=== PATIENT | female | born 1995 | race Caucasian/White ===

== ENCOUNTER 2018-03-24 18:43 | Emergency (ER) | payer MEDICAID ==
[~2018-03-24] VITALS: Ht 162.6 cm; Wt 104.5 kg
[~2018-03-24 18:43] MED LIST: ADDERALL10 MG PO; ADDERALL20 MG PO; BACTRIM 400 MG-1 TAB PO; BACTRIM DS 8001 TAB PO; BIRTH CONTROL PILLS; BRINTELLIX5; CELEBREX; CELEXA 20MG20 MG/TAB PO; CLARITIN 1010 MG/TAB PO; CLEOCIN HCL300 MG PO; COLACE 100100 MG/CAP PO; CORTISPORIN EAR10 ML OT; DARVOCET-N-101 UDTAB PO; DESYREL 50MG50 MG PO; FLEXERIL 1010 MG/TAB PO; IBUPROFEN 200200 MG PO; LEXAPRO 10MG10 MG PO; LEXAPRO20 MG PO; LORTAB 5/500 501 TAB PO; MOTRIN 600600 MG/TAB PO; NAPROSYN500 MG PO; NO HOME MEDICATIONS; NUVARING VAG RING VG; PERCOCET 325 MG1 TA2 PO; PREDNISONE10 MG PO; PREDNISONE20 MG PO; PRENATAL1 TA1 PO; RECLIPSEN 0.151 TAB PO; SUDAFED30 MG PO; TRAZODO50 MG PO; XANAX 0.5MG0.5 MG PO; ZYRTEC 10MG10 MG PO; bc
[2018-03-24 18:48] VITALS: BP 127/69; TEMP 98.3
[2018-03-24] MEDS ORDERED: ATIVAN 0.50.5 MG/TAB PO (19:07)
[2018-03-24] MEDS ORDERED: DESYREL 100MG100 MG PO (19:08)
[2018-03-24] MEDS ORDERED: PRISTIQ 50 MG T50 MG PO (19:08)
[2018-03-24] MEDS ORDERED: GLUCOPHAGE500 MG/TAB PO (19:09)
[2018-03-24] MEDS ORDERED: ZOFRAN ODT4 MG PO (19:10)
[2018-03-24] MEDS ORDERED: MIDRIN 325 MG-11 CAP PO (19:11)
[2018-03-24 20:16] LABS: BASO # 0.1 (0.0-0.2); BASO % 0.4 % (0.0-2.0); EOS # 0.2 (0.0-0.7); EOS % 1.4 % (0-4.0); GRAN # 8.6 (1.4-6.5); GRAN % 68.2 % (42.2-75.2); HEMATOCRIT 38.2 % (37.0-47.0); LYMPH # 3.1 (1.2-3.4); LYMPH % 24.4 % (20.0-51.0); MEAN CELL VOLUME 90 fl (80.0-100.0); MEAN CORPUSCULAR HEMOGLOBIN 28 pg (27.0-31.0); MEAN CORPUSCULAR HGB CONC 31 g/dl (33.0-37.0); MEAN PLATELET VOLUME 9.7 fl (7.4-10.4); MONO # 0.7 (0.1-0.6); MONO % 5.3 % (1.7-9.3); PLATELET COUNT 339 K/mm3 (130-400); RED BLOOD COUNT 4.23 M/mm3 (4.10-5.30); REDCELL DISTRIBUTION WIDTH-CV 13.6 % (11.5-14.5)
[2018-03-24 20:33] LABS: ALBUMIN 3.8 gm/dL (3.5-5.0); BILIRUBIN,TOTAL 0.1 mg/dL (0.0-1.0); C-REACTIVE PROTEIN 1.6 mg/dL (0.0-0.9); CALCIUM 8.5 mg/dL (8.4-10.2); CREATININE, serum 0.55 mg/dL (0.52-1.25); POTASSIUM 3.2 mmol/L (3.4-5.0); TOTAL PROTEIN 7.1 gm/dL (6.4-8.2)
[2018-03-24] MEDS ORDERED: REGLAN 10MG10 MG/TAB PO (21:16)
[2018-03-24] MEDS ORDERED: FIORICET 325 MG1 TA1 PO (21:16)
[2018-03-24 21:35] VITALS: PULSE 84
== END 2018-03-24 21:37 | disposition home or self-care (01) ==
LOC: COL.ER 18:43
PROVIDERS: Nurse Practitioner
DX: R51 Headache (principal); F41.9 Anxiety disorder, unspecified; F32.9 Major depressive disorder, single episode, unspecified; F90.9 Attention-deficit hyperactivity disorder, unspecified type; Z87.891 Personal history of nicotine dependence; Z88.0 Allergy status to penicillin
CPT/HCPCS: J1200; J1885; J2765; J7030

== ENCOUNTER 2018-08-05 13:47 | Emergency (ER) | payer MEDICAID | END 2018-08-05 18:38 | disposition home or self-care (01) | LOC: COL.ER 13:47 | DX: M62.830 Muscle spasm of back (principal) ==

== ENCOUNTER 2019-01-15 17:38 | Emergency (ER) | payer OTHER ==
[~2019-01-15] VITALS: Ht 165.1 cm; Wt 107.7 kg
[~2019-01-15 17:38] MED LIST changes: +ATIVAN 0.50.5 MG/TAB PO; +DESYREL 100MG100 MG PO; +FIORICET 325 MG1 TA1 PO; +GLUCOPHAGE500 MG/TAB PO; +MIDRIN 325 MG-11 CAP PO; +PRISTIQ 50 MG T50 MG PO; +REGLAN 10MG10 MG/TAB PO; +ZOFRAN ODT4 MG PO; +ZOLOFT 25MG25 MG PO; +ZOLOFT 50MG50 MG PO; +ZOVIRAX 200MG200 MG PO
[2019-01-15 17:57] VITALS: BP 129/87; TEMP 98.5
[2019-01-15 19:10] LABS: COLLECTION METHOD CLEAN CATCH
[2019-01-15 19:23] LABS: MUCOUS Present /lpf; PH 6 (5-8); URINE APPEARANCE Hazy; URINE BACTERIA None Seen /hpf; URINE BILIRUBIN Negative (NEGATIVE); URINE BLOOD Negative (NEGATIVE); URINE COLOR Yellow; URINE GLUCOSE Negative (NEGATIVE); URINE KETONE Negative (NEGATIVE); URINE LEUKOCYTE ESTERASE 2+ (NEGATIVE); URINE NITRATE Negative (NEGATIVE); URINE PROTEIN(semi-quant) Negative (NEGATIVE); URINE UROBILINOGEN Negative (NEGATIVE)
[2019-01-15] MEDS ORDERED: MACROBID 1100 MG/CAP PO (19:33)
[2019-01-15 19:34] VITALS: PULSE 76
== END 2019-01-15 19:34 | disposition home or self-care (01) ==
LOC: COL.ER 17:38
PROVIDERS: Physician Assistant
DX: O71.89 Other specified obstetric trauma (principal); O23.91 Unspecified genitourinary tract infection in pregnancy, first trimester; Z3A.00 Weeks of gestation of pregnancy not specified; V43.52XA Car driver injured in collision with other type car in traffic accident, initial encounter

== ENCOUNTER 2019-02-03 05:30 | Emergency (ER) | payer OTHER ==
[~2019-02-03] VITALS: Ht 165.1 cm; Wt 104.5 kg
[~2019-02-03 05:30] MED LIST changes: +MACROBID 1100 MG/CAP PO
[2019-02-03 05:34] VITALS: BP 120/58; TEMP 98.5
[2019-02-03 05:59] LABS: BASO % 0.5 % (0.0-2.0); EOS # 0.3 (0.0-0.7); EOS % 3.5 % (0-4.0); GRAN # 5.1 (1.4-6.5); GRAN % 58.2 % (42.2-75.2); HEMATOCRIT 38.8 % (37.0-47.0); HEMOGLOBIN 12.6 g/dl (12.5-16.0); LYMPH # 2.7 (1.2-3.4); LYMPH % 30.8 % (20.0-51.0); MEAN CELL VOLUME 88 fl (80.0-100.0); MEAN CORPUSCULAR HEMOGLOBIN 29 pg (27.0-31.0); MEAN CORPUSCULAR HGB CONC 33 g/dl (33.0-37.0); MEAN PLATELET VOLUME 9.6 fl (7.4-10.4); MONO # 0.6 (0.1-0.6); MONO % 6.9 % (1.7-9.3); PLATELET COUNT 331 K/mm3 (130-400); RED BLOOD COUNT 4.42 M/mm3 (4.10-5.30); REDCELL DISTRIBUTION WIDTH-CV 13.8 % (11.5-14.5)
[2019-02-03 06:10] LABS: BILIRUBIN,TOTAL 0.2 mg/dL (0.0-1.0); CALCIUM 8.9 mg/dL (8.4-10.2); CREATININE, serum 0.53 (0.52-1.25); POTASSIUM 3.7 mmol/L (3.4-5.0); TOTAL PROTEIN 7.1 gm/dL (6.4-8.2)
[2019-02-03 06:54] LABS: COLLECTION METHOD CLEAN CATCH
[2019-02-03 06:59] LABS: MUCOUS Present /lpf; PH 5 (5-8); SQUAMOUS EPITHELIAL 0-2 /hpf; URINE APPEARANCE Hazy; URINE BACTERIA None Seen /hpf; URINE BILIRUBIN Negative (NEGATIVE); URINE BLOOD Negative (NEGATIVE); URINE COLOR Yellow; URINE GLUCOSE Negative (NEGATIVE); URINE KETONE Negative (NEGATIVE); URINE LEUKOCYTE ESTERASE Negative (NEGATIVE); URINE NITRATE Negative (NEGATIVE); URINE PROTEIN(semi-quant) Negative (NEGATIVE); URINE RBC 0-2 /hpf; URINE UROBILINOGEN Negative (NEGATIVE)
[2019-02-03 07:20] VITALS: PULSE 76
== END 2019-02-03 07:20 | disposition home or self-care (01) ==
LOC: COL.ER 05:30
PROVIDERS: Emergency Medicine
DX: O21.1 Hyperemesis gravidarum with metabolic disturbance (principal); Z3A.09 9 weeks gestation of pregnancy; Z79.84 Long term (current) use of oral hypoglycemic drugs
CPT/HCPCS: J1200; J2405; J2765; J7030

== ENCOUNTER 2019-03-09 18:57 | Emergency (ER) | payer MEDICAID ==
[~2019-03-09] VITALS: Ht 165.1 cm; Wt 106.8 kg
[2019-03-09 19:01] VITALS: BP 114/73; TEMP 98.6
[2019-03-09 19:36] LABS: BASO # 0.1 (0.0-0.2); BASO % 0.5 % (0.0-2.0); EOS # 0.1 (0.0-0.7); EOS % 0.7 % (0-4.0); GRAN # 7.9 (1.4-6.5); GRAN % 73.2 % (42.2-75.2); HEMATOCRIT 39.6 % (37.0-47.0); HEMOGLOBIN 13.1 g/dl (12.5-16.0); LYMPH # 2.3 (1.2-3.4); MEAN CELL VOLUME 88 fl (80.0-100.0); MEAN CORPUSCULAR HEMOGLOBIN 29 pg (27.0-31.0); MEAN CORPUSCULAR HGB CONC 33 g/dl (33.0-37.0); MEAN PLATELET VOLUME 10.2 fl (7.4-10.4); MONO # 0.5 (0.1-0.6); MONO % 4.3 % (1.7-9.3); PLATELET COUNT 321 K/mm3 (130-400); RED BLOOD COUNT 4.52 M/mm3 (4.10-5.30); REDCELL DISTRIBUTION WIDTH-CV 13.7 % (11.5-14.5)
[2019-03-09 19:41] LABS: BILIRUBIN,TOTAL 0.1 mg/dL (0.0-1.0); CALCIUM 9.1 mg/dL (8.4-10.2); CREATININE, serum 0.56 (0.52-1.25); POTASSIUM 3.7 mmol/L (3.4-5.0); TOTAL PROTEIN 7.4 gm/dL (6.4-8.2)
[2019-03-09 20:19] LABS: COLLECTION METHOD CLEAN CATCH
[2019-03-09 20:28] LABS: MUCOUS Present /lpf; PH 5 (5-8); URINE APPEARANCE Hazy; URINE BACTERIA None Seen /hpf; URINE BILIRUBIN Negative (NEGATIVE); URINE BLOOD Negative (NEGATIVE); URINE COLOR Yellow; URINE GLUCOSE Negative (NEGATIVE); URINE KETONE 1+ (NEGATIVE); URINE LEUKOCYTE ESTERASE 1+ (NEGATIVE); URINE NITRATE Negative (NEGATIVE); URINE PROTEIN(semi-quant) 1+ (NEGATIVE); URINE UROBILINOGEN Negative (NEGATIVE)
[2019-03-09 21:40] VITALS: PULSE 86
== END 2019-03-09 21:40 | disposition home or self-care (01) ==
LOC: COL.ER 18:57
PROVIDERS: Nurse Practitioner
DX: O21.9 Vomiting of pregnancy, unspecified (principal); O99.341 Other mental disorders complicating pregnancy, first trimester; F41.9 Anxiety disorder, unspecified; F32.9 Major depressive disorder, single episode, unspecified; F90.9 Attention-deficit hyperactivity disorder, unspecified type; Z88.0 Allergy status to penicillin; Z87.891 Personal history of nicotine dependence; Z79.84 Long term (current) use of oral hypoglycemic drugs; Z3A.13 13 weeks gestation of pregnancy
CPT/HCPCS: J2550; J7030

== ENCOUNTER 2019-03-11 12:58 | Outpatient (CLI) | payer MEDICAID ==
[~2019-03-11] VITALS: Ht 165.1 cm; Wt 105.9 kg
[2019-03-11 13:23] VITALS: BP 111/68; PULSE 72; TEMP 98.2
--- NOTE | 2019-03-11 15:15 | NUR ---
Pt discharged per w/c by nurse with mother.
[2019-03-12] MEDS ORDERED: MACROBID 1100 MG/CAP PO (07:29)
== END 2019-03-11 17:04 | disposition home or self-care (01) ==
LOC: EUO 12:58
DX: Z79.899 Other long term (current) drug therapy (principal)
CPT/HCPCS: J2405; J7120

== ENCOUNTER 2019-03-12 05:44 | Emergency (ER) | payer MEDICAID ==
[~2019-03-12] VITALS: Ht 165.1 cm; Wt 104.5 kg
[2019-03-12 05:57] VITALS: TEMP 98.9
[2019-03-12 06:24] LABS: BASO % 0.5 % (0.0-2.0); EOS # 0.1 (0.0-0.7); EOS % 1.4 % (0-4.0); GRAN # 4.5 (1.4-6.5); GRAN % 57.1 % (42.2-75.2); HEMATOCRIT 40.2 % (37.0-47.0); HEMOGLOBIN 13.3 g/dl (12.5-16.0); LYMPH # 2.8 (1.2-3.4); LYMPH % 35.3 % (20.0-51.0); MEAN CELL VOLUME 87 fl (80.0-100.0); MEAN CORPUSCULAR HEMOGLOBIN 29 pg (27.0-31.0); MEAN CORPUSCULAR HGB CONC 33 g/dl (33.0-37.0); MEAN PLATELET VOLUME 9.8 fl (7.4-10.4); MONO # 0.4 (0.1-0.6); MONO % 5.6 % (1.7-9.3); PLATELET COUNT 330 K/mm3 (130-400); RED BLOOD COUNT 4.63 M/mm3 (4.10-5.30); REDCELL DISTRIBUTION WIDTH-CV 13.7 % (11.5-14.5)
[2019-03-12] MEDS ORDERED: MACROBID 1100 MG/CAP PO (07:29)
[2019-03-12 07:43] LABS: COLLECTION METHOD CLEAN CATCH
[2019-03-12 07:55] LABS: MUCOUS Present /lpf; PH 6 (5-8); URINE APPEARANCE Hazy; URINE BACTERIA Rare /hpf; URINE BILIRUBIN Negative (NEGATIVE); URINE BLOOD 1+ (NEGATIVE); URINE COLOR Yellow; URINE GLUCOSE Negative (NEGATIVE); URINE KETONE 1+ (NEGATIVE); URINE LEUKOCYTE ESTERASE Negative (NEGATIVE); URINE NITRATE Negative (NEGATIVE); URINE PROTEIN(semi-quant) Negative (NEGATIVE); URINE RBC 0-2 /hpf; URINE UROBILINOGEN Negative (NEGATIVE)
[2019-03-12 10:05] VITALS: BP 110/73; PULSE 73
== END 2019-03-12 10:05 | disposition home or self-care (01) ==
LOC: COL.ER 05:44
PROVIDERS: Emergency Medicine
DX: O23.91 Unspecified genitourinary tract infection in pregnancy, first trimester (principal); O20.0 Threatened abortion; Z3A.13 13 weeks gestation of pregnancy
CPT/HCPCS: J7030

== ENCOUNTER → 2019-07-17 | Outpatient (CLI) | payer MEDICAID ==
[~2019-07-17] MED LIST changes: +BONJESTA ER 201 EACH PO; +HUMULIN N 10100 U/ML SQ; +HUMULIN N PE100 U/ML SQ; +HUMULIN R 10100 U/ML SQ; +IBU600 MG PO; +PRENATAL; +VALTREX 50500 MG/TAB PO
== END ==
LOC: DIA.ED 09:36
DX: O24.419 Gestational diabetes mellitus in pregnancy, unspecified control (principal); Z79.4 Long term (current) use of insulin
CPT/HCPCS: G0108

== ENCOUNTER → 2019-07-31 | Outpatient (CLI) | payer MEDICAID | LOC: DIA.ED 11:16 | DX: O24.419 Gestational diabetes mellitus in pregnancy, unspecified control (principal); Z79.4 Long term (current) use of insulin | CPT/HCPCS: G0108 ==

== ENCOUNTER 2019-08-04 11:27 | Outpatient (CLI) | payer MEDICAID ==
[~2019-08-04] VITALS: Ht 165.1 cm; Wt 119.1 kg
[~2019-08-04 11:27] MED LIST changes: -BONJESTA ER 201 EACH PO; -HUMULIN N 10100 U/ML SQ; -HUMULIN N PE100 U/ML SQ; -HUMULIN R 10100 U/ML SQ; -IBU600 MG PO; -PRENATAL; -VALTREX 50500 MG/TAB PO
--- NOTE | 2019-08-04 11:40 | NUR ---
PATIENT HERE TO [facility] FOR CRAMPING, NAUSEA, VOMITING, DIARRHEA. PATIENT DENIES LEAKING OF FLUID, CONTRACTIONS OR BLEEDING. ON EFM. ASSESMENT COMPELTE, VITALS OBTAINED. PATIENT RESTING IN BED
[2019-08-04 11:51] VITALS: BP 106/60; PULSE 108; TEMP 98
[2019-08-04 12:00] VITALS: BP 106/60; PULSE 108; TEMP 98
[2019-08-04] MEDS ORDERED: PRENATAL (12:02)
[2019-08-04] MEDS ORDERED: VALTREX 50500 MG/TAB PO (12:02)
[2019-08-04] MEDS ORDERED: BONJESTA ER 201 EACH PO (12:02)
[2019-08-04] MEDS ORDERED: HUMULIN N 10100 U/ML SQ (12:04)
[2019-08-04 12:29] LABS: COLLECTION METHOD CLEAN CATCH
[2019-08-04 12:30] VITALS: BP 123/74; PULSE 93
[2019-08-04 12:32] LABS: BASO % 0.3 % (0.0-2.0); EOS % 0.4 % (0-4.0); GRAN % 80.1 % (42.2-75.2); HEMOGLOBIN 11.2 g/dl (12.5-16.0); LYMPH # 1.7 (1.2-3.4); LYMPH % 15.5 % (20.0-51.0); MEAN CELL VOLUME 85 fl (80.0-100.0); MEAN CORPUSCULAR HEMOGLOBIN 27 pg (27.0-31.0); MEAN CORPUSCULAR HGB CONC 31 g/dl (33.0-37.0); MEAN PLATELET VOLUME 10.5 fl (7.4-10.4); MONO # 0.4 (0.1-0.6); MONO % 3.2 % (1.7-9.3); PLATELET COUNT 335 K/mm3 (130-400); REDCELL DISTRIBUTION WIDTH-CV 14.4 % (11.5-14.5)
[2019-08-04 12:33] LABS: HEMATOCRIT 35.7 % (37.0-47.0)
[2019-08-04 12:37] LABS: MUCOUS Present /lpf; PH 5 (5-8); URINE APPEARANCE Hazy; URINE BACTERIA Rare /hpf; URINE BILIRUBIN Negative (NEGATIVE); URINE BLOOD Negative (NEGATIVE); URINE COLOR Yellow; URINE GLUCOSE Negative (NEGATIVE); URINE KETONE Negative (NEGATIVE); URINE LEUKOCYTE ESTERASE Trace (NEGATIVE); URINE NITRATE Negative (NEGATIVE); URINE PROTEIN(semi-quant) Negative (NEGATIVE); URINE RBC 0-2 /hpf; URINE UROBILINOGEN Negative (NEGATIVE)
[2019-08-04 12:45] LABS: ALBUMIN 3.5 gm/dL (3.5-5.0); BILIRUBIN,TOTAL 0.2 mg/dL (0.0-1.0); CALCIUM 8.9 mg/dL (8.4-10.2); CREATININE, serum 0.43 (0.52-1.25); POTASSIUM 4.1 mmol/L (3.4-5.0); TOTAL PROTEIN 6.9 gm/dL (6.4-8.2)
[2019-08-04 13:00] VITALS: BP 127/71; PULSE 85
== END 2019-08-04 13:00 | disposition home or self-care (01) ==
LOC: LDRO 11:27 → LDR 12:10 → LDRO 13:00
PROVIDERS: Obstetrics & Gynecology
DX: O99.89 Other specified diseases and conditions complicating pregnancy, childbirth and the puerperium (principal); R11.2 Nausea with vomiting, unspecified; R25.2 Cramp and spasm; Z3A.34 34 weeks gestation of pregnancy
CPT/HCPCS: OP

== ENCOUNTER 2019-09-01 07:35 | Outpatient (CLI) | payer MEDICAID ==
[~2019-09-01] VITALS: Ht 165.1 cm; Wt 121.4 kg
--- NOTE | 2019-09-01 07:30 | NUR ---
Pt arrives on unit ambulatory with spouse. States contractions since 0540 that are mild. Changed into a clean gown. EFM and toco applied. VSS. Admission assessment completed. SAMMI Castillo RN . BS obtained. Noted 158. Pt states eating a "radha butter" on the way in. Dr. Lemons notified. See notification. Pt updated on POC. No questions or concerns at this time.
[~2019-09-01 07:35] MED LIST changes: +BONJESTA ER 201 EACH PO; +HUMULIN N 10100 U/ML SQ; +PRENATAL; +VALTREX 50500 MG/TAB PO
[2019-09-01 08:30] VITALS: BP 119/67; PULSE 98; TEMP 98.2
== END 2019-09-01 08:30 | disposition home or self-care (01) ==
LOC: LDRO 07:35 → LDR 07:40 → LDRO 08:30 → LDR 09-02 08:48
DX: O62.9 Abnormality of forces of labor, unspecified (principal); Z3A.38 38 weeks gestation of pregnancy
CPT/HCPCS: OP

== ENCOUNTER 2019-12-31 15:37 | Emergency (ER) | payer MEDICAID ==
[~2019-12-31] VITALS: Ht 165.1 cm; Wt 113.6 kg
[~2019-12-31 15:37] MED LIST changes: +HUMULIN N PE100 U/ML SQ; +HUMULIN R 10100 U/ML SQ; +IBU600 MG PO
[2019-12-31 15:43] VITALS: BP 128/86; TEMP 98.6
[2019-12-31 16:46] LABS: COLLECTION METHOD CLEAN CATCH
[2019-12-31 16:57] LABS: MUCOUS Present /lpf; PH 6 (5-8); URINE APPEARANCE Clear; URINE BACTERIA None Seen /hpf; URINE BILIRUBIN Negative (NEGATIVE); URINE BLOOD 3+ (NEGATIVE); URINE COLOR Yellow; URINE GLUCOSE Negative (NEGATIVE); URINE KETONE Negative (NEGATIVE); URINE LEUKOCYTE ESTERASE Negative (NEGATIVE); URINE NITRATE Negative (NEGATIVE); URINE PROTEIN(semi-quant) Negative (NEGATIVE); URINE RBC >50 /hpf; URINE UROBILINOGEN Negative (NEGATIVE)
[2019-12-31 17:21] VITALS: PULSE 75
== END 2019-12-31 17:21 | disposition home or self-care (01) ==
LOC: COL.ER 15:37
PROVIDERS: Physician Assistant
DX: G43.109 Migraine with aura, not intractable, without status migrainosus (principal)
CPT/HCPCS: J1200; J1885; J2550; J7030

== ENCOUNTER 2020-02-13 17:58 | Emergency (ER) | payer MEDICAID ==
[~2020-02-13] VITALS: Ht 165.1 cm; Wt 115.9 kg
[2020-02-13 18:09] VITALS: BP 113/74; TEMP 97
[2020-02-13] MEDS ORDERED: ZYRTEC 10MG10 MG PO (18:58)
[2020-02-13] MEDS ORDERED: TYLENOL 500MG500 MG PO (18:58)
[2020-02-13] MEDS ORDERED: MUCINEX D1 TER PO (18:59)
[2020-02-13 19:08] LABS: COLLECTION METHOD CLEAN CATCH
[2020-02-13 19:31] LABS: MUCOUS Present /lpf; PH 5 (5-8); URINE APPEARANCE Hazy; URINE BACTERIA None Seen /hpf; URINE BILIRUBIN Negative (NEGATIVE); URINE BLOOD 2+ (NEGATIVE); URINE COLOR Yellow; URINE GLUCOSE Negative (NEGATIVE); URINE KETONE Negative (NEGATIVE); URINE LEUKOCYTE ESTERASE Negative (NEGATIVE); URINE NITRATE Negative (NEGATIVE); URINE PROTEIN(semi-quant) 1+ (NEGATIVE); URINE RBC 0-2 /hpf; URINE UROBILINOGEN Negative (NEGATIVE)
[2020-02-13] MEDS ORDERED: FLEXERIL 1010 MG/TAB PO (19:42)
[2020-02-13 19:58] VITALS: PULSE 77
== END 2020-02-13 19:58 | disposition home or self-care (01) ==
LOC: COL.ER 17:58
PROVIDERS: Physician Assistant
DX: M54.9 Dorsalgia, unspecified (principal); Z88.0 Allergy status to penicillin; Z88.1 Allergy status to other antibiotic agents; Z87.891 Personal history of nicotine dependence
CPT/HCPCS: J1885

== ENCOUNTER 2020-08-19 16:12 | Emergency (ER) | payer MEDICAID ==
[~2020-08-19] VITALS: Ht 165.1 cm; Wt 113.6 kg
[~2020-08-19 16:12] MED LIST changes: +MUCINEX D1 TER PO; +TYLENOL 500MG500 MG PO
[2020-08-19 16:17] VITALS: TEMP 98.1
[2020-08-19 17:28] VITALS: BP 117/74; PULSE 84
== END 2020-08-19 17:28 | disposition home or self-care (01) ==
LOC: COL.ER 16:12
DX: S83.005A Unspecified dislocation of left patella, initial encounter (principal); F17.290 Nicotine dependence, other tobacco product, uncomplicated; Z88.0 Allergy status to penicillin; Z88.1 Allergy status to other antibiotic agents; W01.0XXA Fall on same level from slipping, tripping and stumbling without subsequent striking against object, initial encounter
CPT/HCPCS: J3010; J3360; L1846

== ENCOUNTER 2020-11-17 09:00 | Outpatient (RCR) | payer BC, MEDICAID | END 2021-01-18 | LOC: WSPT | DX: S83.005A Unspecified dislocation of left patella, initial encounter (principal) ==

== ENCOUNTER 2021-12-01 13:47 | Emergency (ER) | payer MEDICAID ==
[~2021-12-01] VITALS: Ht 165.1 cm; Wt 121.8 kg
[2021-12-01 14:02] VITALS: TEMP 98.3
[2021-12-01] MEDS ORDERED: ALDACTONE 100M100 MG PO (14:04)
[2021-12-01] MEDS ORDERED: BELSOMRA10 MG PO (14:04)
[2021-12-01] MEDS ORDERED: VIIBRYD20 MG PO (14:04)
[2021-12-01] MEDS ORDERED: SINGULAIR 110 MG/TAB PO (14:05)
[2021-12-01 15:03] LABS: BASO # 0.1 K/mm3 (0.0-0.2); BASO % 0.6 % (0.0-2.0); EOS # 0.2 K/mm3 (0.0-0.7); EOS % 1.7 % (0.0-4.0); GRAN # 6.8 K/mm3 (1.4-6.5); GRAN % 72.2 % (42.2-75.2); HEMATOCRIT 39.6 % (37.0-47.0); HEMOGLOBIN 12.9 g/dl (12.5-16.0); LYMPH % 21.2 % (20.0-51.0); MEAN CELL VOLUME 88 fl (80.0-100.0); MEAN CORPUSCULAR HEMOGLOBIN 29 pg (27-31); MEAN CORPUSCULAR HGB CONC 33 g/dl (33.0-37.0); MONO # 0.4 K/mm3 (0.1-0.6); PLATELET COUNT 348 K/mm3 (130-400); RED BLOOD COUNT 4.49 M/mm3 (4.10-5.30); REDCELL DISTRIBUTION WIDTH-CV 13.5 % (11.5-14.5)
[2021-12-01 15:20] LABS: ALANINE AMINOTRANSFERASE 16 U/L (0-55); ALBUMIN 3.4 gm/dL (3.5-5.0); ALKALINE PHOSPHATASE 51 U/L (40-150); ANION GAP 12 mmol/L (7-16); AST,SGOT 12 U/L (5-34); BILIRUBIN,TOTAL 0.2 mg/dL (0.2-1.2); BLOOD UREA NITROGEN 11 mg/dL (7-19); CALCIUM 8.8 mg/dL (8.4-10.2); CARBON DIOXIDE 24 mmol/L (22-29); CHLORIDE 103 mmol/L (98-107); CREATININE, serum 0.77 mg/dL (0.57-1.11); GLUCOSE 160 mg/dL (70-99); LIPASE 22 U/L (8-78); POTASSIUM 4.1 mmol/L (3.5-4.5); SODIUM 139 mmol/L (136-145); TOTAL PROTEIN 7.3 gm/dL (6.2-8.1)
[2021-12-01 15:27] LABS: TROPONIN-I < 0.010 ng/mL (0.00-0.033)
[2021-12-01 15:50] VITALS: BP 129/84; PULSE 77
== END 2021-12-01 15:50 | disposition home or self-care (01) ==
LOC: COL.ER 13:47
PROVIDERS: Nurse Practitioner Primary Care
DX: R20.2 Paresthesia of skin (principal); Z28.310 Unvaccinated for COVID-19
CPT/HCPCS: J1200; J7030

== ENCOUNTER 2023-12-19 10:39 | Emergency (ER) | payer OTHER ==
[~2023-12-19] VITALS: Ht 165.1 cm; Wt 134.1 kg
[~2023-12-19 10:39] MED LIST changes: +ALDACTONE 100M100 MG PO; +BELSOMRA10 MG PO; +SINGULAIR 110 MG/TAB PO; +VIIBRYD20 MG PO
[2023-12-19] MEDS ORDERED: NS 1,000 ML IV ONE (11:00)
[2023-12-19 11:03] LABS: BASO # 0.1 K/mm3 (0.0-0.2); BASO % 0.5 % (0.0-2.0); EOS # 0.2 K/mm3 (0.0-0.7); EOS % 1.4 % (0.0-4.0); GRAN # 8.3 K/mm3 (1.4-6.5); GRAN % 73.6 % (42.2-75.2); HEMATOCRIT 43.9 % (37.0-47.0); HEMOGLOBIN 14.1 g/dl (12.5-16.0); LYMPH # 2.2 K/mm3 (1.2-3.4); LYMPH % 19.4 % (20.0-51.0); MEAN CELL VOLUME 86 fl (80.0-100.0); MEAN CORPUSCULAR HEMOGLOBIN 28 pg (27-31); MEAN CORPUSCULAR HGB CONC 32 g/dl (33.0-37.0); MEAN PLATELET VOLUME 9.4 fl (7.4-10.4); MONO # 0.5 K/mm3 (0.1-0.6); MONO % 4.7 % (1.7-9.3); PLATELET COUNT 379 K/mm3 (130-400); RED BLOOD COUNT 5.08 M/mm3 (4.10-5.30); REDCELL DISTRIBUTION WIDTH-CV 13.5 % (11.5-14.5)
[2023-12-19 11:25] LABS: ALBUMIN 3.7 g/dL (3.5-5.0); BILIRUBIN,TOTAL 0.6 mg/dL (0.2-1.2); CALCIUM 9.1 mg/dL (8.4-10.2); CREATININE, serum 0.78 mg/dL (0.57-1.11); TOTAL PROTEIN 7.6 g/dl (6.2-8.1)
[2023-12-19] MEDS ORDERED: Iohexol 300 - 100 ML VIAL IV ONE (11:40)
[2023-12-19] MEDS ORDERED: NS 100 ML IV SCH (11:42)
[2023-12-19] MEDS ORDERED: Ketorolac 30 MG/ML VIAL IV ONE (12:00)
[2023-12-19] MEDS ORDERED: Morphine 4 MG/ML VIAL IV ONE (12:00)
[2023-12-19 12:02] LABS: COLLECTION METHOD CLEAN CATCH
[2023-12-19 12:11] LABS: PH 5.5 (5.0-8.5); URINE APPEARANCE CLOUDY (CLEAR/HAZY); URINE BLOOD NEGATIVE (NEGATIVE); URINE COLOR YELLOW (YELLOW); URINE GLUCOSE NEGATIVE (NEGATIVE); URINE KETONE NEGATIVE (NEGATIVE); URINE NITRATE NEGATIVE (NEGATIVE); URINE PROTEIN(semi-quant) TRACE (NEGATIVE); URINE UROBILINOGEN 0.2 E.U/dL (0.2-1.0)
[2023-12-19] MEDS ORDERED: CIPRO 500MG TA500 MG PO (12:17)
[2023-12-19] MEDS ORDERED: FLAGYL500 MG PO (12:17)
[2023-12-19] MEDS ORDERED: NORCO 325 MG-51 TAB PO (12:26)
[2023-12-19] MEDS ORDERED: cefTRIAXone 1 G in Water For Injection,Sterile 10 ML IV ONE (12:30)
[2023-12-19 12:43] VITALS: BP 123/69; PULSE 79; TEMP 97.7
== END 2023-12-19 12:43 | disposition home or self-care (01) ==
LOC: COL.ER 10:39
PROVIDERS: Physician Assistant
DX: N39.0 Urinary tract infection, site not specified (principal); K57.32 Diverticulitis of large intestine without perforation or abscess without bleeding; E66.9 Obesity, unspecified; Z88.0 Allergy status to penicillin
CPT/HCPCS: J0696; J1885; J2270; J7030; Q9967